=== PATIENT | female | born 1985 | race African-American/Black ===

== ENCOUNTER 2019-02-01 15:30 | Emergency (ER) | payer OTHER ==
--- NOTE | 2019-02-01 15:51 | PDOC ---
Rapid Medical Evaluation Chief Complaint: Edema Time Seen by Provider: 02/01/19 15:45 Medical Evaluation: Allergies Allergy/AdvReac Type Severity Reaction Status Date / Time No Known Allergies Allergy Verified 02/24/16 23:17 02/01/19 15:45 I have performed a brief in-person evaluation of this patient. The patient presents with a chief complaint of:R oral pain/facial swelling and now unable to open mouth x 5 days. No f/c. Had dental cleaning 1 month ago, no extractions. H/o HIV on meds, UD VL, unknown CD4, no OIs. Pertinent physical exam findings:Stable w/ sig R facial swelling, pt unable to open mouth fully in triage to evaluate intra-oral cavity, will defer to ED provider I have ordered the following:labs The patient will proceed to the ED for further evaluation. Discharge Disposition - Diagnosis Facial swelling - Referrals - Patient Instructions - Post Discharge Activity
[2019-02-01 15:52] VITALS: BMI 52.0
[2019-02-01] MEDS ORDERED: CLINDAMYCIN 600MG PREMIX IVPB 600 MG/50 ML BAG IVPB ONE ×2 (17:08→18:15)
[2019-02-01 17:54] LABS: BASO % 0.4 % (0-2.0); EOS % 0.9 % (0-4.5); HEMATOCRIT 35.4 % (32.4-45.2); HEMOGLOBIN 11.5 GM/dL (10.7-15.3); LYMPH % 23.9 % (8-40); MCH 27.2 pg (25.7-33.7); MCHC 32.5 g/dl (32.0-36.0); MEAN CELL VOLUME 83.7 fl (80-96); MEAN PLT VOLUME 9.1 fl (7.5-11.1); MONO % 5.6 % (3.8-10.2); NEUT % 69.2 % (42.8-82.8); PLATELET COUNT 411 K/MM3 (134-434); RBC 4.22 M/mm3 (3.60-5.2); RDW 15.4 % (11.6-15.6); WHITE BLOOD COUNT 10.3 K/mm3 (4.0-10.0)
[2019-02-01 17:58] LABS: EPI CELLS 1.9 /HPF (0-5/HPF); HYALINE CASTS 3 /lpf (0-8); URINE APPEARANCE CLEAR; URINE BACTERIA 39.3 /hpf (NEGATIVE); URINE BILIRUBIN NEGATIVE (NEGATIVE); URINE COLOR YELLOW; URINE GLUCOSE (UA) NEGATIVE (NEGATIVE); URINE KETONE NEGATIVE (NEGATIVE); URINE LEUK ESTERASE NEGATIVE (NEGATIVE); URINE NITRITE NEGATIVE (NEGATIVE); URINE PROTEIN TRACE (NEGATIVE); URINE RBC 6 /hpf (0-4); URINE WBC 1 /hpf (0-5)
--- NOTE | 2019-02-01 18:43 | PDOC ---
History of Present Illness - General History Source: Patient Exam Limitations: No Limitations <Felicitas Sapp - Last Filed: 02/01/19 18:38> <Ivy Peralta - Last Filed: 02/01/19 21:01> - General Chief Complaint: Edema Stated Complaint: SWOLLEN FACE Time Seen by Provider: 02/01/19 15:45 Past History - Travel Traveled outside of the country in the last 30 days: No Close contact w/someone who was outside of country & ill: No - Past Medical History Anemia: No Asthma: Yes Cancer: No Cardiac Disorders: No CVA: No COPD: No CHF: No Dementia: No Diabetes: No GI Disorders: No Disorders: No HTN: No Hypercholesterolemia: No Liver Disease: No Seizures: No Thyroid Disease: No - Surgical History Abdominal Surgery: No Appendectomy: No Cardiac Surgery: No Cholecystectomy: No Lung Surgery: No Neurologic Surgery: No Orthopedic Surgery: No - Immunization History Immunization Up to Date: Yes (flu ) - Suicide/Smoking/Psychosocial Hx Smoking Status: No Smoking History: Never smoked Have you smoked in the past 12 months: No Number of Cigarettes Smoked Daily: 0 Cigars Per Day: 0 Information on smoking cessation initiated: No Hx Alcohol Use: No Drug/Substance Use Hx: No Substance Use Type: None Hx Substance Use Treatment: No <Felicitas Sapp - Last Filed: 02/01/19 18:38> <Ivy Peralta - Last Filed: 02/01/19 21:01> - Past Medical History Allergies/Adverse Reactions: Allergies Allergy/AdvReac Type Severity Reaction Status Date / Time No Known Allergies Allergy Verified 02/24/16 23:17 Home Medications: Ambulatory Orders Nebulizer [Aeroeclipse] 1 each MC Q4HWA PRN #1 each 06/22/13 Albuterol Sulfate Inhaler - [Ventolin HFA Inhaler -] 1 - 2 inh PO Q6H PRN #1 inhaler 06/01/18 Elviteg/Cob/Emtri/Tenof Alafen [Genvoya Tablet] 1 each PO DAILY #30 tablet 06/01 Multivitamin,Ther and Minerals [Vitamin and Minerals] 1 each PO DAILY #30 tablet 09/14/18 Blood Pressure Test Kit-Large [Blood Pressure Monitor] 1 each ASDIR #1 kit Diphenhydramine HCl [Benadryl -] 25 mg PO Q6H PRN 11/23/18 Docusate Sodium [Colace -] 100 mg PO TID PRN #90 capsule 11/23/18 Elviteg/Cob/Emtri/Tenof Alafen [Genvoya (Non-Formulary)] 1 each PO DAILY #30 tablet 11/23/18 Ergocalciferol (Vitamin D2) [Vitamin D2] 50,000 unit PO WEEKLY #4 capsule Ferrous Sulfate [Iron] 325 mg PO TID 11/23/18 Zinc Sulfate 220 mg PO DAILY 11/23/18 Review of Systems - Review of Systems Able to Perform ROS?: Yes Comments:: 02/01/19 18:38 CONSTITUTIONAL: Absent: fever, chills, diaphoresis, generalized weakness, malaise, loss of appetite HEENT: Present: R sided facial swelling and pain Absent: rhinorrhea, nasal congestion, throat pain, throat swelling, difficulty swallowing, ear pain, eye pain, visual Changes CARDIOVASCULAR: Absent: chest pain, loss of consciousness, palpitations, irregular heart rate, peripheral edema RESPIRATORY: Absent: cough, shortness of breath, dyspnea with exertion, orthopnea, wheezing, stridor, hemoptysis GASTROINTESTINAL: Absent: abdominal pain, abdominal distension, nausea, vomiting, diarrhea, constipation, melena, hematochezia GENITOURINARY: Absent: dysuria, frequency, urgency, hesitancy, hematuria, flank pain, genital pain MUSCULOSKELETAL: Absent: myalgia, arthralgia, joint swelling SKIN: Absent: rash, itching, pallor HEMATOLOGIC/IMMUNOLOGIC: Absent: easy bleeding, easy bruising, lymphadenopathy, frequent infections ENDOCRINE: Absent: unexplained weight gain, unexplained weight loss, heat intolerance, cold intolerance NEUROLOGIC: Absent: headache, focal weakness or paresthesias, dizziness, unsteady gait, seizure, mental status changes, bladder or bowel incontinence PSYCHIATRIC: Absent: anxiety, depression, suicidal or homicidal ideation, hallucinations. Is the patient limited [place] proficient: No <Felicitas Sapp - Last Filed: 02/01/19 18:38> *Physical Exam - Vital Signs Last Vital Signs Temp Pulse Resp BP Pulse Ox 97.8 F 83 16 101/58 L 98 02/01/19 15:45 02/01/19 15:45 02/01/19 15:45 02/01/19 15:45 02/01/19 15:45 - Physical Exam Comments: 02/01/19 18:38 GENERAL: Well developed, well nourished. Awake and alert. No acute distress. HEENT: Normocephalic, atraumatic. PERRLA, EOMI. No conjunctival pallor. Sclera are non- icteric. Moist mucous membranes. Oropharynx is clear. Unable to fully open mouth d/t pain secondary to broken wisdom tooth Upper right. Mild edema appreciated to the R cheek. No pain over the TMJ NECK: Supple. Full ROM. No JVD. Carotid pulses 2+ and symmetric, without bruits. No thyromegaly. No lymphadenopathy. CARDIOVASCULAR: Regular rate and rhythm. No murmurs, rubs, or gallops. Distal pulses are 2+ and symmetric. PULMONARY: No evidence of respiratory distress. Lungs clear to auscultation bilaterally. No wheezing, rales or rhonchi. SKIN: Warm and dry. Normal capillary refill. No rashes. No jaundice. NEUROLOGICAL: Alert, awake, appropriate. Cranial nerves 2-12 intact. No deficits to light touch and temperature in face, upper extremities and lower extremities. No motor deficits in the in face, upper extremities and lower extremities. Normoreflexic in the upper and lower extremities. Normal speech. Toes are down- going bilaterally. Gait is normal without ataxia. PSYCHIATRIC: Cooperative. Good eye contact. Appropriate mood and affect. <Felicitas Sapp - Last Filed: 02/01/19 18:38> - Vital Signs Last Vital Signs Temp Pulse Resp BP Pulse Ox 98.2 F 76 17 107/57 L 100 02/01/19 19:43 02/01/19 19:43 02/01/19 19:43 02/01/19 19:43 02/01/19 19:43 <Ivy Peralta - Last Filed: 02/01/19 21:01> ED Treatment Course - LABORATORY CBC & Chemistry Diagram: 02/01/19 17:30 02/01/19 17:30 - ADDITIONAL ORDERS Additional order review: Laboratory Results 02/01/19 02/01/19 17:40 17:40 Urine Color Yellow Urine Appearance Clear Urine pH 6.0 Ur Specific [place] 1.024 Urine Protein Trace Urine Glucose (UA) Negative Urine Ketones Negative Urine Blood Trace Urine Nitrite Negative Urine Bilirubin Negative Urine Urobilinogen 1.0 Ur Leukocyte Esterase Negative Urine WBC (Auto) 1 Urine RBC (Auto) 6 Urine Casts (Auto) 3 U Epithel Cells (Auto) 1.9 Urine Bacteria (Auto) 39.3 Urine HCG, Qual Negative 02/01/19 17:30 RBC 4.22 MCV 83.7 MCHC 32.5 RDW 15.4 MPV 9.1 Neutrophils % 69.2 Lymphocytes % 23.9 Monocytes % 5.6 Eosinophils % 0.9 Basophils % 0.4 - RADIOLOGY Radiology Studies Ordered: Category Date Time Status FACIAL BONES CT WITH CONTRAST [CT] Stat CT Scan 02/01/19 17:07 Ordered - Medications Given in the ED: ED Medications Discontinued Medications Generic Name Dose Route Start Last Admin Trade Name Freq PRN Reason Stop Dose Admin Clindamycin Phosphate 600 mg in 50 mls @ 100 mls/hr 02/01/19 17:08 02/01/19 18:25 Cleocin 600 Mg Premix Ivpb - IVPB 02/01/19 17:37 100 mls/hr ONCE ONE Administration Protocol <Felicitas Sapp - Last Filed: 02/01/19 18:38> - LABORATORY CBC & Chemistry Diagram: 02/01/19 17:30 02/01/19 17:30 - ADDITIONAL ORDERS Additional order review: Laboratory Results 02/01/19 02/01/19 02/01/19 17:40 17:40 17:30 Sodium 139 Potassium 3.9 Chloride 106 Carbon Dioxide 27 Anion Gap 5 L BUN 9.0 Creatinine 0.8 Est GFR (CKD-EPI)AfAm 110.70 Est GFR (CKD-EPI)NonAf 95.52 Random Glucose 89 Calcium 8.5 Total Bilirubin 0.3 AST 10 L ALT 13 Alkaline Phosphatase 91 Total Protein 9.2 H Albumin 3.2 L Urine Color Yellow Urine Appearance Clear Urine pH 6.0 Ur Specific [place] 1.024 Urine Protein Trace Urine Glucose (UA) Negative Urine Ketones Negative Urine Blood Trace Urine Nitrite Negative Urine Bilirubin Negative Urine Urobilinogen 1.0 Ur Leukocyte Esterase Negative Urine WBC (Auto) 1 Urine RBC (Auto) 6 Urine Casts (Auto) 3 U Epithel Cells (Auto) 1.9 Urine Bacteria (Auto) 39.3 Urine HCG, Qual Negative 02/01/19 17:30 RBC 4.22 MCV 83.7 MCHC 32.5 RDW 15.4 MPV 9.1 Neutrophils % 69.2 Lymphocytes % 23.9 Monocytes % 5.6 Eosinophils % 0.9 Basophils % 0.4 - Medications Given in the ED: ED Medications Discontinued Medications Generic Name Dose Route Start Last Admin Trade Name Jagdeep PRN Reason Stop Dose Admin Acetaminophen 1,000 mg 02/01/19 19:08 02/01/19 19:32 Ofirmev Injection - IVPB 02/01/19 19:09 1,000 mg ONCE ONE Administration Diphenhydramine HCl 50 mg 02/01/19 20:04 02/01/19 20:39 Benadryl Injection - IVPUSH 02/01/19 20:05 50 mg ONCE ONE Administration Clindamycin Phosphate 600 mg in 50 mls @ 100 mls/hr 02/01/19 17:08 02/01/19 18:25 Cleocin 600 Mg Premix Ivpb - IVPB 02/01/19 17:37 100 mls/hr ONCE ONE Administration Protocol Famotidine/Sodium Chloride 20 mg in 50 mls @ 100 mls/hr 02/01/19 20:25 20:39 Pepcid 20 Mg Premixed Ivpb - IVPB 02/01/19 20:54 100 mls/hr ONCE ONE Administration Methylprednisolone Sodium Succinate 125 mg 02/01/19 20:25 02/01/19 20:39 Solu-Medrol - IVPB 02/01/19 20:26 125 mg ONCE ONE Administration Sodium Chloride 1,000 ml 02/01/19 20:05 02/01/19 20:39 Normal Saline - IV 02/01/19 20:06 1,000 ml ONCE ONE Administration <Ivy Peralta - Last Filed: 02/01/19 21:01> Medical Decision Making - Medical Decision Making 02/01/19 18:43 The patient is a 33-year-old female past medical history of HIV (viral load currently undetectable), presents to the ER today with right-sided facial pain. She notes that the pain started approximately 2 days ago has gotten worse. When she woke up this morning she noted that her cheek was swollen and she was unable to open her mouth due to the pain. She notes that she has a broken wisdom tooth in the upper right part of her mouth that needs extraction. She has an appointment on February 24 of this year. Denies fevers, chills, numbness and tingling to the face, difficulty swallowing, throat pain and lymphadenopathy. A/P: Right-sided facial pain and HIV patient On exam the back upper right molar is impacted and broken with associated swelling to the bucca mucosa on the right side. Basic labs, urine ordered IV clindamycin given CT facial bones ordered to evaluate for facial abscess Dispo dependent on CT findings Sign out given to LOUISE Peralta. <Felicitas Sapp - Last Filed: 02/01/19 18:38> *DC/Admit/Observation/Transfer <Felciitas Sapp - Last Filed: 02/01/19 18:38> <Ivy Peralta - Last Filed: 02/01/19 21:01> Diagnosis at time of Disposition: Facial swelling, Dental abscess, Trismus - Referrals Referrals: Eduin Mendes MD [Primary Care Provider] - - Patient Instructions - Post Discharge Activity
[2019-02-01 19:00] LABS: ALBUMIN 3.2 g/dl (3.4-5.0); BILIRUBIN,TOTAL 0.3 mg/dL (0.2-1); CALCIUM 8.5 mg/dL (8.5-10.1); CREATININE 0.8 mg/dL (0.55-1.3); POTASSIUM 3.9 mmol/L (3.5-5.1); TOT PROT 9.2 g/dl (6.4-8.2)
[2019-02-01] MEDS ORDERED: ACETAMINOPHEN 1000 MG/100 ML VIAL (NON FORMULARY) IVPB ONE (19:08)
[2019-02-01] MEDS ORDERED: ACETAMINOPHEN INJECTION 100 ML IVPB ONE (19:25)
--- NOTE | 2019-02-01 19:45 | PDOC ---
*Physical Exam - Vital Signs Last Vital Signs Temp Pulse Resp BP Pulse Ox 97.8 F 83 16 101/58 L 98 02/01/19 15:45 02/01/19 15:45 02/01/19 15:45 02/01/19 15:45 02/01/19 15:45 - Physical Exam General Appearance: Yes: Appropriately Dressed HEENT: positive: Other (right sided trismus, right facial swelling) Respiratory/Chest: positive: Lungs Clear, Normal Breath Sounds Extremity: positive: Normal Capillary Refill, Normal Inspection, Normal Range of Motion ED Treatment Course - LABORATORY CBC & Chemistry Diagram: 02/01/19 17:30 02/01/19 17:30 - ADDITIONAL ORDERS Additional order review: Laboratory Results 02/01/19 02/01/19 02/01/19 17:40 17:40 17:30 Sodium 139 Potassium 3.9 Chloride 106 Carbon Dioxide 27 Anion Gap 5 L BUN 9.0 Creatinine 0.8 Est GFR (CKD-EPI)AfAm 110.70 Est GFR (CKD-EPI)NonAf 95.52 Random Glucose 89 Calcium 8.5 Total Bilirubin 0.3 AST 10 L ALT 13 Alkaline Phosphatase 91 Total Protein 9.2 H Albumin 3.2 L Urine Color Yellow Urine Appearance Clear Urine pH 6.0 Ur Specific [place] 1.024 Urine Protein Trace Urine Glucose (UA) Negative Urine Ketones Negative Urine Blood Trace Urine Nitrite Negative Urine Bilirubin Negative Urine Urobilinogen 1.0 Ur Leukocyte Esterase Negative Urine WBC (Auto) 1 Urine RBC (Auto) 6 Urine Casts (Auto) 3 U Epithel Cells (Auto) 1.9 Urine Bacteria (Auto) 39.3 Urine HCG, Qual Negative 02/01/19 17:30 RBC 4.22 MCV 83.7 MCHC 32.5 RDW 15.4 MPV 9.1 Neutrophils % 69.2 Lymphocytes % 23.9 Monocytes % 5.6 Eosinophils % 0.9 Basophils % 0.4 - Medications Given in the ED: ED Medications Discontinued Medications Generic Name Dose Route Start Last Admin Trade Name Freq PRN Reason Stop Dose Admin Acetaminophen 1,000 mg 02/01/19 19:08 02/01/19 19:32 Ofirmev Injection - IVPB 02/01/19 19:09 1,000 mg ONCE ONE Administration Clindamycin Phosphate 600 mg in 50 mls @ 100 mls/hr 02/01/19 17:08 02/01/19 18:25 Cleocin 600 Mg Premix Ivpb - IVPB 02/01/19 17:37 100 mls/hr ONCE ONE Administration Protocol Medical Decision Making - Medical Decision Making 02/01/19 20:15 Patient s/p CT notable itchy, no respiratory symptoms. benadryl and IVF ordered 02/01/19 20:56 Hives improved status post Benadryl, Solu-Medrol, Pepcid. CT facial bones with contrast: Approximately 2.31.41.4 cm rim enhancing fluid collection is noted in the right parapharyngeal space at the level of the middle third of the oral cavity there is associated swelling of the ipsilateral medial pterygoid muscle. Soft tissue stranding is seen in the right parapharyngeal space more was tearily consistent with edema. Edema is also seen with the right Saini later space. Right mandibular third molar to demonstrate a horizontal orientation with lucency surrounding the root consistent with loosening. Focal cortical dehiscence is seen along the lingual surface of the mandible in the region of right third molar tooth 02/01/19 21:02 IM hospitalist team consulted for admission, recommends OMFS evaluation/ consult. 02/01/19 21:28 PATIENT for transfer at [facility] ER. patient accepted by Dr. siobhan ALVAREZ *DC/Admit/Observation/Transfer Diagnosis at time of Disposition: Facial swelling, Dental abscess, Trismus - Discharge Dispostion Disposition: TRANSFER ACUTE CARE/OTHER HOSP - Referrals Referrals: Eduin Mendes MD [Primary Care Provider] - - Patient Instructions - Post Discharge Activity
[2019-02-01 19:47] VITALS: BP 107/57
[2019-02-01] MEDS ORDERED: SODIUM CHLORIDE 0.9% 500 ML INFUS.BAG IV ONE (20:05)
[2019-02-01] MEDS ORDERED: methylPREDNISolone NA SUCC 125 MG/2 ML VIAL IVPB ONE (20:25)
[2019-02-01] MEDS ORDERED: FAMOTIDINE 20 MG/50 ML IVPB 20 MG/50 ML MG IVPB ONE ×2 (20:25→20:31)
[2019-02-01] MEDS ORDERED: methylPREDNISolone NA SUCC 125 MG/2 ML VIAL ONE (20:31)
[2019-02-01 22:58] VITALS: PULSE 82; TEMP 98.9
--- NOTE | 2019-02-02 00:13 | CONSULT ---
Consultation: REQUESTING PROVIDER: CONSULT REQUEST: We have been asked to medically evaluate this patient for dental abscess. HISTORY OF PRESENT ILLNESS: Patient is a 33-year-old female past medical history of HIV (Last viral load undetectable), presents to the ER today with right-sided facial pain for the past 2 days. When she woke up this morning she noted that her cheek was swollen and she was unable to open her mouth due to the pain. She notes that she has a broken wisdom tooth in the upper right part of her mouth that needs extraction. She has an appointment on February 24 of this year. Denies fevers, chills, numbness and tingling to the face, difficulty swallowing, throat pain and lymphadenopathy. CT facial bones shows ring enhancing lesion on the right c/w abscess. WBC 10.3, VS WNL. REVIEW OF SYSTEMS: 10 system ROS was conducted and was negative except as noted in the HPI PHYSICAL EXAMINATION Vital Signs - 24 hr 02/01/19 02/01/19 02/01/19 15:45 19:43 22:54 Temperature 97.8 F 98.2 F 98.9 F Pulse Rate 83 82 Pulse Rate [ 76 Left] Respiratory 16 17 18 Rate Blood Pressure 101/58 L 107/57 L Blood Pressure 107/57 L [Left] O2 Sat by Pulse 98 100 Oximetry (%) GENERAL: Awake, alert, and fully oriented, in no acute distress. HEAD: Normal with no signs of trauma. EARS, NOSE, THROAT: Ears normal, nares patent. Moist mucous membranes. There is an area on the right in the region of the right upper wisdom tooth area is erythematous and swollen with an obvious wound where wisdom tooth is erupting. Entire area fluctuant and exquisitely tender to palpation. LUNGS: Breath sounds equal, clear to auscultation bilaterally. No wheezes, and no crackles. No accessory muscle use. HEART: Regular rate and rhythm, normal S1 and S2 without murmur, rub or gallop. ABDOMEN: Soft, nontender, not distended, normoactive bowel sounds, no guarding, no rebound, no masses. No hepatomegaly or splenomegaly. LOWER EXTREMITIES: 2+ pulses, warm, well-perfused. No calf tenderness. No peripheral edema. NEUROLOGICAL: Cranial nerves II-X intact. Normal speech. Laboratory Results - last 24 hr 02/01/19 02/01/19 02/01/19 17:30 17:30 17:40 WBC 10.3 H RBC 4.22 Hgb 11.5 Hct 35.4 MCV 83.7 MCH 27.2 MCHC 32.5 RDW 15.4 Plt Count 411 MPV 9.1 Absolute Neuts (auto) 7.1 Neutrophils % 69.2 Lymphocytes % 23.9 Monocytes % 5.6 Eosinophils % 0.9 Basophils % 0.4 Nucleated RBC % 0 Sodium 139 Potassium 3.9 Chloride 106 Carbon Dioxide 27 Anion Gap 5 L BUN 9.0 Creatinine 0.8 Est GFR (CKD-EPI)AfAm 110.70 Est GFR (CKD-EPI)NonAf 95.52 Random Glucose 89 Calcium 8.5 Total Bilirubin 0.3 AST 10 L ALT 13 Alkaline Phosphatase 91 Total Protein 9.2 H Albumin 3.2 L Urine Color Urine Appearance Urine pH Ur Specific [place] Urine Protein Urine Glucose (UA) Urine Ketones Urine Blood Urine Nitrite Urine Bilirubin Urine Urobilinogen Ur Leukocyte Esterase Urine WBC (Auto) Urine RBC (Auto) Urine Casts (Auto) U Epithel Cells (Auto) Urine Bacteria (Auto) Urine HCG, Qual Negative 02/01/19 17:40 WBC RBC Hgb Hct MCV MCH MCHC RDW Plt Count MPV Absolute Neuts (auto) Neutrophils % Lymphocytes % Monocytes % Eosinophils % Basophils % Nucleated RBC % Sodium Potassium Chloride Carbon Dioxide Anion Gap BUN Creatinine Est GFR (CKD-EPI)AfAm Est GFR (CKD-EPI)NonAf Random Glucose Calcium Total Bilirubin AST ALT Alkaline Phosphatase Total Protein Albumin Urine Color Yellow Urine Appearance Clear Urine pH 6.0 Ur Specific [place] 1.024 Urine Protein Trace Urine Glucose (UA) Negative Urine Ketones Negative Urine Blood Trace Urine Nitrite Negative Urine Bilirubin Negative Urine Urobilinogen 1.0 Ur Leukocyte Esterase Negative Urine WBC (Auto) 1 Urine RBC (Auto) 6 Urine Casts (Auto) 3 U Epithel Cells (Auto) 1.9 Urine Bacteria (Auto) 39.3 Urine HCG, Qual ASSESSMENT/PLAN: #right sided dental abscess -Patient requires IV ABX -patient may require I&D of abscess to control source; this recommendation would need to come from OMFS -we do not have an OMFS service or analytical consultant which could assess the patient while admitted here, therefore, suggest transfer to tertiary care facility where patient can be evaluated for a surgical procedure. Visit type - Emergency Visit Emergency Visit: Yes Care time: The patient presented to the Emergency Department on the above date and was hospitalized for further evaluation of their emergent condition. - New Patient This patient is new to me today: Yes Date on this admission: 02/02/19 - Critical Care Critical Care patient: No ATTENDING PHYSICIAN STATEMENT I saw and evaluated the patient. I reviewed the resident's note and discussed the case with the resident. I agree with the resident's findings and plan as documented. SUBJECTIVE: OBJECTIVE: ASSESSMENT AND PLAN:
--- NOTE | 2019-02-02 01:08 | PN ---
Teaching Attending Note Name of Resident: Meek Ryan ATTENDING PHYSICIAN STATEMENT I saw and evaluated the patient. I reviewed the resident's note and discussed the case with the resident. I agree with the resident's findings and plan as documented. Thank you for consulting [facility]; briefly this is a 33 y/o HIV+ patient with dental abscess alongside stated wisdom tooth impaction. She has pain, swelling , and trismus. She is protecting her airway. Mild leukocytosis but not septic. Verified no OMFS coverage here overnight or daytime tomorrow. Spoke to ER attending Dr. Peralta who agrees with transfer given circumstances, which we recommend as of course she will need abx prior to assessing, but given 2 issues (abscess, wisdom tooth issue) and existing immunocompromised state and the fact we have no foreseeable OMFS coverage, we can give her abx but we would need someone to see the patient to recommend what to do, or at least discuss with OMFS and get recs so she would not benefit from admission here. NAD, AAO. Fullness and pain on R-gum palpation Swelling and some redness Fullness in R-cheek RRR s1/2 Lungs CTAB, w/sym exp CN2-[address] reviewed with ER ASSESSMENT AND PLAN: Due to lack of coverage, wisdom tooth and dental abscess, HIV+, she should have OMFS recommend how to proceed. This service isn't available here. If outside OMFS can recommend she stays she is welcome to the floor and we will give IV abx. If another ER accepts her we recommend she be transferred for OMFS eval.
== END 2019-02-01 22:58 | disposition short-term general hospital (02) ==
LOC: JER 15:30
PROC: 3E03329 Introduction of Other Anti-infective into Peripheral Vein, Percutaneous Approach (ICD-10-PCS; principal; 2019-02-01)
PROC: 3E033GC Introduction of Other Therapeutic Substance into Peripheral Vein, Percutaneous Approach (ICD-10-PCS; 2019-02-01)
PROC: 3E033GC Introduction of Other Therapeutic Substance into Peripheral Vein, Percutaneous Approach (ICD-10-PCS; 2019-02-01)
PROC: 3E033NZ Introduction of Analgesics, Hypnotics, Sedatives into Peripheral Vein, Percutaneous Approach (ICD-10-PCS; 2019-02-01)
PROC: 3E0333Z Introduction of Anti-inflammatory into Peripheral Vein, Percutaneous Approach (ICD-10-PCS; 2019-02-01)
DX: K04.7 Periapical abscess without sinus (principal); K01.1 Impacted teeth; R25.2 Cramp and spasm; Z21 Asymptomatic human immunodeficiency virus [HIV] infection status; Z87.09 Personal history of other diseases of the respiratory system
CPT/HCPCS: 36415; 70487-TC; 80053; 81003; 84703; 85025; 96365; 96367; 96375; 99284-25; J0131

== ENCOUNTER 2024-01-22 10:12 | Emergency (ER) | payer OTHER ==
[2024-01-22 10:38] VITALS: BP 142/86; PULSE 69; RESP 17; TEMP 98.6; BMI 114.9
[2024-01-22] MEDS ORDERED: IBUPROFEN 400 MG TABLET (FP) PO ONE (11:44)
[2024-01-22] MEDS ORDERED: SULFAMETHOXAZOLE/TRIMETHOPRIM 800MG/160MG D.S. TABLET ONE (11:45)
[2024-01-22] MEDS: IBUPROFEN 400 MG TABLET (FP) PO ONE (11:46)
[2024-01-22] MEDS: SULFAMETHOXAZOLE/TRIMETHOPRIM 800MG/160MG D.S. TABLET PO ONE (11:47)
[2024-01-22] MEDS ORDERED: BACITRACIN ZINC 15 GM TUBE TOPICAL OINTMENT ONE (11:53)
== END 2024-01-22 11:57 | disposition home or self-care (01) ==
LOC: JERFT 10:12
DX: L02.413 Cutaneous abscess of right upper limb (principal)
CPT/HCPCS: 99283-25